=== PATIENT | female | born 1980 | race Caucasian/White ===

== ENCOUNTER → 2021-09-08 08:25 | Outpatient (CLI) | payer BC, SELFPAY ==
[2021-09-08 10:37] LABS: HCG,Quantitative < 2 mIU/ml (0-5.42)
== END ==
PROVIDERS: Visit Provider Obstetrics & Gynecology
DX: Z32.01 Encounter for pregnancy test, result positive (principal)
CPT/HCPCS: 36415; 84702

== ENCOUNTER 2021-11-06 15:08 | Emergency (ER) | payer SELFPAY ==
[2021-11-06 15:29] VITALS: BMI 35.6
[2021-11-06 15:30] VITALS: BP 154/102; PULSE 108; RESP 20; TEMP 36.6; O2SAT 97; BMI 35.6
[2021-11-06 15:35] LABS: Coronavirus 19, PCR Not Detected (NotDetected); Influenza A, PCR Not Detected (NotDetected); Influenza B, PCR Not Detected (NotDetected)
--- NOTE | 2021-11-06 15:38 | [facility].EDGENADL ---
ED Disposition Clinical Impression: Viral upper respiratory infection, Abdominal distention Disposition: Home, Self-Care Condition on Discharge: Good Instructions: DI for Viral Upper Respiratory Infection -- Adult Additional Instructions: Follow-up with your primary care provider, call next week for appointment. Referrals: Provider,Referral, [Primary Care Provider] - - Critical Care Critical Care Time: No Attestation: On 11/06/21, the high probability of a clinically significant, sudden or life threatening deterioration of the following system(s) required my full and direct attention, intervention and personal management. The time I documented below is in addition to time spent performing reported procedures but includes the following listed in this critical care notation. Medical Decision Making - Ihsan Inquiry Pt receiving controlled substance: No Vital Signs: 11/06/21 15:30 Temperature 98 F Temperature Source Oral Pulse Rate [Radial] 108 H Respiratory Rate 20 Blood Pressure [Right Arm] 154/102 H Blood Pressure Mean [Right Arm] 119 Blood Pressure Position [Right Arm] Sitting 02 Sat by Pulse Oximetry 97 Oxygen Delivery Method Room Air - Lab Data Lab Results 11/06/21 15:25: SARS-CoV-2 (PCR) Not detected, Influenza A Untype (PCR) Not detected, Influenza Type B (PCR) Not detected 11/06/21 15:38: Group A Strep Rapid Negative 11/06/21 16:02: Urine HCG, Qual Negative 11/06/21 16:02: Urine Color Yellow, Urine Appearance Sl cloudy, Urine pH 7.0, Ur Specific [place] 1.020, Urine Protein Negative, Urine Glucose (UA) Negative, Urine Ketones Trace, Urine Blood Trace-i, Urine Nitrate Negative, Urine Bilirubin Negative, Urine Urobilinogen 1.0, Ur Leukocyte Esterase Negative, Urine RBC 3-5, Urine WBC None, Ur Squamous Epith Cells 5-10, Urine Bacteria Trace 11/06/21 16:54: HCG, Quant < 2 11/06/21 16:54: WBC 14.1 H, RBC 4.91, Hgb 14.4, Hct 44.5, MCV 90.6, MCH 29.3, MCHC 32.3, RDW 14.2, Plt Count 364, MPV 8.4, Neut % (Auto) 78.3, Lymph % (Auto) 13.0, [place] % (Auto) 5.2, Eos % (Auto) 2.0, Baso % (Auto) 1.5, Neut # (Auto) 11.0 H, Lymph # (Auto) 1.8, [place] # (Auto) 0.7, Eos # (Auto) 0.3, Baso # (Auto) 0.2 11/06/21 16:54: Sodium 139, Potassium 4.6, Chloride 106, Carbon Dioxide 26, Anion Gap 11.6, BUN 12, Creatinine 0.90, Estimated Creat Clear 124, Estimated GFR 69, Est GFR ( Amer) 84, Glucose 98, Calcium 9.1, Total Bilirubin 0.2, AST 43 H, ALT 28, Alkaline Phosphatase 85, Total Protein 7.5, Albumin 4.2, Globulin 3.3 H, Albumin/Globulin Ratio 1.3 11/06/21 16:54: Lipase 39 Result diagrams: 11/06/21 16:54 11/06/21 16:54 Orders (Tests/Meds): ED MEDICATIONS Discontinued Medications Generic Name Dose Route Start Last Admin Trade Name Freq PRN Reason Stop Dose Admin Iopamidol 75 ml 11/06/21 18:33 11/06/21 18:34 Iopamidol-370 (76%);100ml Bottle IV 11/06/21 18:34 75 ml ONCE ONE Administration Sodium Chloride 10 ml 11/06/21 18:33 11/06/21 18:34 Sodium Chloride 0.9% 10ml Syr (Rad Only) IV 11/06/21 18:34 10 ml ONCE ONE Administration ORDERS Category Date Time Status Strep Screen Confirmation Stat Micro 11/06/21 15:38 Received - Radiology Data #1 Image(s): Chest Image Reviewed: Yes I reviewed the patient's radiology image, Yes I have reviewed radiologist's interpretation Preliminary Findings: Normal/NAD PROCEDURE INFORMATION: Exam: XR Chest Exam date and time: 11/06/2021 5:55 PM Age: 41 years old Clinical indication: Cough TECHNIQUE: Imaging protocol: XR of the chest. Views: 2 views. COMPARISON: No relevant prior studies available. FINDINGS: Lungs: Unremarkable. No consolidation. Pleural spaces: Unremarkable. No pleural effusion. No pneumothorax. Heart/Mediastinum: Unremarkable. No cardiomegaly. Bones/joints: Unremarkable. IMPRESSION: No acute findings. - CT Data CT Scan: Abdomen,
[2021-11-06 16:18] LABS: Microscopic, Urine URINE MICROSCOPIC (MICROSCOPIC)
[2021-11-06 16:22] LABS: Appearance,Urine SL CLOUDY (Clear); Bilirubin,Urine Negative (Negative); Blood, Urine TRACE-I (Negative); Color,Urine YELLOW (Yellow); Glucose,Urine (UA) Negative (Negative); Ketones,Urine TRACE (Negative); Leukocyte Esterase,Urine Negative (Negative); Nitrate,Urine Negative (Negative); Protein,Urine Negative (Negative)
[2021-11-06 16:27] LABS: Urine Pregnancy, HCG Qual. Negative (Negative)
[2021-11-06 16:32] LABS: Strep Scrn Group A (Rapid) Negative (Negative)
[2021-11-06 16:56] LABS: Bacteria,Urine Trace /lpf
[2021-11-06 17:29] LABS: Chloride 106 mmol/L (98-107); Potassium 4.6 mmoL/L (3.5-5.1); Sodium 139 mmol/L (136-145)
[2021-11-06 17:31] LABS: Alanine Aminotransferase 28 U/L (12-78); Aspartate Amino Transferase 43 U/L (14-36); Bilirubin,Total 0.2 mg/dl (0.2-1.3); Blood Urea Nitrogen 12 mg/dl (7-17); Creatinine Clearance Estimated 124 mL/min (50-200); Estimated Glomerular Filt Rate 69 ml/min (>60); GFR (African American) 84 ML/MIN (>60); Lipase 39 U/L (23-300)
[2021-11-06 17:32] LABS: Albumin Level 4.2 g/dl (3.5-5.0); Albumin/Globulin Ratio 1.3 (1.1-1.8); Alkaline Phosphatase 85 U/L (38-126); Anion Gap 11.6 mEq/L (5-15); Calcium 9.1 mg/dl (8.4-10.2); Carbon Dioxide 26 mmol/L (22.0-30.0); Globulin 3.3 g/dL (1.3-3.2); Glucose 98 mg/dl (74-100); Total Protein,Serum 7.5 g/dl (6.3-8.2)
[2021-11-06 17:35] LABS: Basophils # 0.2 K/mm3 (0-0.2); Basophils % 1.5 % (0.1-2.0); Eosinophils # 0.3 K/mm3 (0.0-0.4); Hematocrit 44.5 % (37.0-47.0); Hemoglobin 14.4 g/dL (12.2-16.2); Lymphocytes # 1.8 K/mm3 (0.7-4.5); Mean Corpuscular HGB Conc 32.3 g/dL (31.8-35.4); Mean Corpuscular Hemoglobin 29.3 pg (27.0-31.2); Mean Corpuscular Volume 90.6 fl (81-99); Mean Platelet Volume 8.4 fl (7.4-10.4); Monocytes # 0.7 K/mm3 (0.1-1.0); Monocytes % 5.2 % (1.7-9.3); Neutrophils % 78.3 % (37.0-80.0); Platelet Count 364 K/mm3 (142-424); Red Blood Count 4.91 M/mm3 (4.20-5.40); Red Cell Distribution Width 14.2 % (11.5-17.5); White Blood Count 14.1 K/mm3 (4.8-10.8)
[2021-11-06 17:45] LABS: HCG,Quantitative < 2 mIU/ml (0-5.42)
--- NOTE | 2021-11-06 17:55 | XR_ITS ---
PROCEDURE INFORMATION: Exam: XR Chest Exam date and time: 11/06/2021 5:55 PM Age: 41 years old Clinical indication: Cough TECHNIQUE: Imaging protocol: XR of the chest. Views: 2 views. COMPARISON: No relevant prior studies available. FINDINGS: Lungs: Unremarkable. No consolidation. Pleural spaces: Unremarkable. No pleural effusion. No pneumothorax. Heart/Mediastinum: Unremarkable. No cardiomegaly. Bones/joints: Unremarkable. IMPRESSION: No acute findings.
--- NOTE | 2021-11-06 18:05 | CT_ITS ---
PROCEDURE INFORMATION: Exam: CT Abdomen And Pelvis With Contrast Exam date and time: 11/06/2021 6:05 PM Age: 41 years old Clinical indication: Other: Abdomen distension; Prior surgery; Surgery type: Gallbladder; Additional info: Abdo distension since July 2021 TECHNIQUE: Imaging protocol: Computed tomography of the abdomen and pelvis with contrast. Radiation optimization: All CT scans at this facility use at least one of these dose optimization techniques: automated exposure control; mA and/or kV adjustment per patient size (includes targeted exams where dose is matched to clinical indication); or iterative reconstruction. Contrast material: ISOVUE; Contrast volume: 75 ml; Contrast route: IV; COMPARISON: CR XR CHEST 2V 11/06/2021 6:12 PM FINDINGS: Tubes, catheters and devices: None noted. Lungs: Lung bases appear clear. Heart: No significant coronary calcifications. No cardiomegaly. No significant pericardial effusion. Liver: Normal. No mass. Gallbladder and bile ducts: Normal. No calcified stones. No ductal dilation. Pancreas: Normal. No ductal dilation. Spleen: Normal. No splenomegaly. Adrenal glands: Normal. No mass. Kidneys and ureters: Normal. No hydronephrosis. Stomach and bowel: Unremarkable. No obstruction. No mucosal thickening. Appendix: No evidence of appendicitis. Intraperitoneal space: Unremarkable. No free air. No significant fluid collection. Retroperitoneal space: No significant retroperitoneal inflammatory changes are noted. Vasculature: Left gonadal varicocele. No abdominal aortic aneurysm. Lymph nodes: Unremarkable. No enlarged lymph nodes. Urinary bladder: Unremarkable as visualized. Reproductive: 3 cm uterine fibroid right dorsal midbody. Left gonadal varicocele. Bones/joints: Unremarkable. No acute fracture. Soft tissues: Unremarkable. IMPRESSION: 1. No CT evidence of bowel obstruction. 2. No CT evidence of ascites. 3. 3 cm right uterine fibroid with enhancement. 4. Left gonadal varicocele.
[2021-11-06 19:15] VITALS: BP 150/96; PULSE 85; RESP 20; TEMP 36.8; O2SAT 97
== END 2021-11-06 19:19 | disposition home or self-care (01) ==
PROVIDERS: Emergency Provider Emergency Medicine
DX: J06.9 Acute upper respiratory infection, unspecified (principal); Z3A.12 12 weeks gestation of pregnancy; Z20.822 Contact with and (suspected) exposure to COVID-19
CPT/HCPCS: 71046; 74177; 80053; 81001; 81025; 83690; 84702; 85025; 87430; 99283; C9803; Q9967; U0003; U0005